=== PATIENT | male | born 1970 | race Hispanic/Latino ===

== ENCOUNTER 2022-06-03 11:44 | Emergency (ER) | payer OTHER ==
[~2022-06-03] VITALS: Ht 177.8 cm; Wt 108.9 kg
[2022-06-03 12:02] LABS: BASOPHILS % (AUTO) 1.9 % (0.0-5.0); EOSINOPHILS % (AUTO) 4.8 % (0.0-8.0); HEMATOCRIT 38.2 % (42-54); LYMPHOCYTES % (AUTO) 26.3 % (21.0-51.0); MEAN CORPUSCULAR HEMOGLOBIN 30.9 pg (27.0-33.0); MEAN CORPUSCULAR HGB CONC 33.8 g/dL (32.0-36.0); MEAN CORPUSCULAR VOLUME 91.4 fL (79-99); MONOCYTES % (AUTO) 22.5 % (3.0-13.0); PLATELET COUNT (AUTO) 101 K/uL (130-400); RED BLOOD CELL COUNT(AUTO) 4.18 MIL/uL (4.50-6.20); RED CELL DISTRIBUTION WIDTH 15.9 % (11.0-15.5); WHITE BLOOD COUNT (AUTO) 3.7 K/uL (4.8-10.8)
[2022-06-03 12:19] LABS: ALBUMIN 2.9 g/dL (3.5-5.0); CREATININE 0.8 mg/dL (0.5-1.5); POTASSIUM 3.8 mmol/L (3.5-5.1)
[2022-06-03 13:10] LABS: APPEARANCE,URINE CLEAR (CLEAR); BILIRUBIN,URINE NEGATIVE (NEGATIVE); COLOR,URINE YELLOW (YELLOW); GLUCOSE, URINE (UA) NEGATIVE (NEGATIVE); KETONES,URINE NEGATIVE (NEGATIVE); LEUKOCYTE ESTERASE ,URINE NEGATIVE Leu/uL (NEGATIVE); NITRATE,URINE NEGATIVE (NEGATIVE); OCCULT BLOOD,URINE NEGATIVE (NEGATIVE); PROTEIN,URINE NEGATIVE (NEGATIVE); UROBILINOGEN,URINE 6 mg/dL (0.2-1.0)
[2022-06-03 13:15] LABS: MUCUS,URINE RARE LPF (None Seen); WBC,URINE 0-1 /HPF (0-1)
[2022-06-03] MEDS ORDERED: GABA-533 PO (15:57)
[2022-06-03 16:07] VITALS: BP 132/71
== END 2022-06-03 16:09 | disposition home or self-care (01) ==
LOC: EDH 11:44
DX: R20.2 Paresthesia of skin (principal); Z79.899 Other long term (current) drug therapy
CPT/HCPCS: 36415; 70450; 80053; 81001; 84484; 85025; 93005

== ENCOUNTER 2025-06-02 11:23 | Emergency (ER) | payer SELFPAY ==
[~2025-06-02] VITALS: Ht 170.2 cm; Wt 73.9 kg
[~2025-06-02 11:23] MED LIST: CYCL10TA16 PO; GABA-534 PO
--- NOTE | 2025-06-02 11:27 | ERN ---
ED Note History of Present Illness Stated Complaint: OTHER Chief Complaint: Other Problems Time Seen by MD: 11:25 Dictation: This is a 54-year-old male who presented to the emergency room with complaints of increasing abdominal distention shortness of breath and requesting paracentes is. Patient stated that March 15 he was admitted to [facility] when he presented with similar symptoms and an extensive workup was done including liver biopsy was told that he had hepatocellular carcinoma. He has been undergoing paracentesis trend in the last procedure was 11 days ago. When asked about any other treatment options patient seemed to be extremely poor historian. He was told that he had cirrhosis of the liver. He denied any hepatitis. He stated that he drank quite heavily when he was younger and he quit drinking the day he was admitted to the hospital.he has lost weight and his appetite has been poor Temperature 97.9 pulse 74 respirations 18 blood pressure 110/64 with a pulse oximetry of 97% on room air Alcoholic cirrhosis of the liver, hypertension, hypercholesterolemia, hepatocellular carcinoma= details are unclear Allergies: Coded Allergies: No Known Drug Allergies (Unverified Allergy, Unknown, 06/03/22) Home Meds Active Scripts Cyclobenzaprine HCl (Flexeril) 10 Mg Tab, 10 MG PO TID for muscle sstiffness, #14 TAB 0 Refills Prov:[employer] 09/05/24 Gabapentin (Gabapentin) 400 Mg Capsule, 400 MG PO TID for 10 Days, #30 CAP Prov:SUKHDEV NAIR V [employer]ANNING DIRECTOR 06/03/22 Past Medical History Past Medical History: Cancer (HEPATOCELLULAR CARCINOMA), Coagulopathy, High Cholesterol, Hypertension Additional Past Medical Hx: NECK PAIN ASCITES STATUS POST PARACENTESIS Surgical History: Other Surgical History Other: NECK SURGERY Family History: Negative Social History: Negative RN Note Reviewed/Agreed w/PFSH: Yes Review of System Dictation Constitutional: Negative for fever,chills, and weight loss Eyes: Negative for injury, pain,redness, and discharge ENT: Negative for injury,pain or swelling Cardiovascular: Negative for chest pain, palpitations, and edema Respiratory: Negative for shortness of breath, cough, and wheezing, positive for shortness of breath related to abdominal distention Abdomen/GI: Negative for abdominal pain, nausea, vomiting, diarrhea, and constipation positive for increasing abdominal girth and distention Back: Negative for injury and pain : Negative for injury, bleeding and discharge MS/Extremity: Negative for injury and deformity Skin: Negative for rash, and discoloration Neuro: Negative for headache, weakness, numbness, tingling, and seizure Psych: Negative for suicide ideation, homicidal ideation, and hallucinations Initial Vital Sign VS Vital Signs Date Time Temp Pulse Resp B/P (MAP) Pulse Ox O2 Delivery O2 Flow Rate FiO2 06/02/25 11:32 97.9 74 18 110/64 97 Room Air 06/02/25 11:42 0 21 Physical Exam Dictation General: awake, alert, NAD emaciated ill-appearing Head/Face: Normocephalic, atraumatic Eyes: PERRL, EOMI, vision at baseline ENT: oral cavity clear, TMs clear, no signs of infection, poor dentition Neck: Trachea midline, supple, no nuchal rigidity Cardiovascular: RRR, normal S1/S2, No MRGs, no JVD Respiratory: CTAB, no respiratory distress, No rales or wheezes Abdomen: Very-distended, normal bowel sounds, no guarding or rebound. Tense ascites Skin: Warm, dry, normal turgor, no rash MS/Extremity: Pulses equal, no cyanosis, neurovascular intact, FROM Neuro: COAx4, GCS 15, strength 5/5, CN 2-12 intact, normal cerebellar exam, normal gait, Psych: Normal behavior, mood, and affect normal Extremities-1+ edema without any palpable cords, Homans sign is negative Results (Laboratory/Radiology) Laboratory/Radiology Laboratory Tests Test 06/02/25 11:39 White Blood Count 7.5 K/uL (4.8-10.8) Red Blood Count 2.93 MIL/uL (4.50-6.20) L Hemoglobin 9.2 g/dL (14.0-18.0) L Hematocrit 26.3 % (42-54) L Mean Corpuscular Volume 89.8 fL (79-99) Mean Corpuscular Hemoglobin 31.4 pg (27.0-33.0) Mean Corpuscular Hemoglobin Concent 35.0 g/dL (32.0-36.0) Red Cell Distribution Width 16.3 % (11.0-15.5) H Platelet Count 270 K/uL (130-400) Mean Platelet Volume 9.5 fL (7.5-10.5) Immature Granulocyte % (Auto) 1.1 % (0-1) H Neutrophils (%) (Auto) 71.5 % (40.0-77.0) Lymphocytes (%) (Auto) 16.9 % (21.0-51.0) L Monocytes (%) (Auto) 8.5 % (3.0-13.0) Eosinophils (%) (Auto) 1.5 % (0.0-8.0) Basophils (%) (Auto) 0.5 % (0.0-5.0) Neutrophils # (Auto) 5.4 K/uL (1.8-7.7) Lymphocytes # (Auto) 1.3 K/uL (1.0-4.8) Monocytes # (Auto) 0.6 K/uL (0.1-1.0) Eosinophils # (Auto) 0.11 K/uL (0.00-0.70) Basophils # (Auto) 0.04 K/uL (0.00-0.20) Absolute Immature Granulocyte (auto 0.08 K/uL (0-1) Nucleated Red Blood Cells 0.0 % (0.0-0.19) Prothrombin Time 14.2 SEC (9.6-11.6) H Prothromb Time International Ratio 1.38 (0.85-1.15) H Activated Partial Thromboplast Time 29.6 SEC (26.3-35.5) Sodium Level 128 mmol/L (136-145) L Potassium Level 3.8 mmol/L (3.5-5.1) Chloride Level 97 mmol/L (101-111) L Carbon Dioxide Level 23 mmol/L (21-32) Blood Urea Nitrogen 32 mg/dL (7-18) H Creatinine 1.6 mg/dL (0.5-1.3) H Glomerular Filtration Rate Calc 52 mL/min (>90) Random Glucose 104 mg/dL (70-105) Total Calcium 7.8 mg/dL (8.5-10.1) L Labs Reviewed?: Yes ED Course ED Course Orders Procedure Category Date Status Time Cbc With Differential LAB 06/02/25 Complete 11:45 Basic Metabolic Panel LAB 06/02/25 Complete 11:45 Pt And Ptt LAB 06/02/25 Complete 11:45 Us Abdominal US 06/02/25 Resulted Paracentesis Ir 11:45 Albumin Human 25% PHA 06/02/25 Complete (Albutein) 11:49 Lidocaine Hcl 1% 20ml PHA 06/02/25 Complete Vial (Lidocaine Hc 11:53 Current Medications Medications (Trade) Dose Ordered Sig/Val Route PRN Reason Start Time Stop Time Status Last Admin Dose Admin Albumin Human 200 ml @ As Directed STK-MED ONCE IV 06/02/25 11:49 06/02/25 11:49 DC 06/02/25 12:18 Lidocaine HCl (Lidocaine HCl 1% 20ml Vial) 20 ml STK-MED ONCE .ROUTE 06/02/25 11:53 06/02/25 11:53 DC Vital Signs Date Time Temp Pulse Resp B/P (MAP) Pulse Ox O2 Delivery O2 Flow Rate FiO2 06/02/25 14:13 97.9 69 18 99/52 97 Room Air* 0 06/02/25 13:57 97.9 69 18 96/55 97 Room Air* 0 06/02/25 13:40 97.9 72 18 93/46 97 Room Air* 0 06/02/25 11:42 97.9 74 18 110/64 97 Room Air* 0 21 06/02/25 11:32 97.9 74 18 110/64 97 Room Air Medical Decision Making MDM Differential diagnosis-recurrent malignant ascites, secondary bacterial peritonitis, metastatic lesions , bleeding into the peritoneum This is a 54-year-old male who presented to the emergency room with complaints of increasing abdominal distention shortness of breath and requesting parace ntesis. Patient stated that March 15 he was admitted to [facility] when he presented with similar symptoms and an extensive workup was done including liver biopsy was told that he had hepatocellular carcinoma. He has been undergoing paracentesis trend in the last procedure was 11 days ago. When asked about any other treatment options patient seemed to be extremely poor historian. He was told that he had cirrhosis of the liver. He denied any hepatitis. He stated that he drank quite heavily when he was younger and he quit drinking the day he was admitted to the hospital.he has lost weight and his appetite has been poor Temperature 97.9 pulse 74 respirations 18 blood pressure 110/64 with a pulse oximetry of 97% on room air Alcoholic cirrhosis of the liver, hypertension, hypercholesterolemia, hepatocellular carcinoma= details are unclear 12:20 p.m. labs reviewed CBC showed a white count of 7.5 hemoglobin 9.2 platelets 270. BNP 7 shows a sodium of 128 chloride 97 BUN and creatinine are 32 and 1.6. INR is 1.38 Requested IR guided paracentesis for therapeutic relief. 1:50 p.m. approximately 12 L of ascitic fluid was drained. Patient feels significantly improved Patient does not want to wait until albumin infusion stating he never received any before. Discharge him to follow up with his primary care physician and oncologist Rationale: Tests considered and ordered secondary to shared decision making include: Labs and ultrasound Previous outside records reviewed: Old ER visits. Risk of complication and/or morbidity or mortality of patient management: None Medications-Per medication reconciliation Need for hospitalization: Patient does not meet criteria for hospitalization. Need for emergency major/minor surgery: No There are no social concerns with this patient. Prescription drug management Prescriptions will include symptomatic care Patient's prior external medical records from other ER visits were reviewed by me as indicated. Prior testing and results from previous visits were reviewed. Prior tests were taken into account with medical decision making and resource utilization, independent historian/historians were used to obtain complete medical history. I independently interpreted the test that were performed, results were reviewed by me and considered findings on radiology if ordered. Medical management and examination interpretation discussions were had by me with other qualified healthcare professionals as indicated for the patient's care. Problem List Problem List: (1) Malignant ascites (2) Hepatocellular carcinoma (3) Alcoholic cirrhosis of liver DX & DISP Disposition: Discharge Departure Impression: Primary Impression: Malignant ascites Additional Impressions: Hepatocellular carcinoma, Alcoholic cirrhosis of liver, Status post abdominal paracentesis Condition: Stable Additional Instructions: Patient and the caregiver have been informed of all the diagnostic tests and the imaging conducted during the today's visit to the emergency room and has verbalized understanding of the results I have personally reviewed and interpreted all diagnostic exams performed here in the ER today as well as the vital signs documented by the nursing staff. The patient is now being discharged to home and should follow up with the primary care physician or the specialist as directed by the ER staff. 1 schedule a follow-up appointment; call your primary care physician's office on the next business day to set up a follow-up appointment. 2. Monitor symptoms; if your symptoms worsen return to the emergency room immediately. 3. Return to school/work; you may return to work or school in 2 days or as directed by your primary care physician. 4. Manage pain and fever; take [id number] Tylenol or Advil for pain or fever if there are no contraindications follow the recommended dosage instructions. 5. Stay well hydrated; drink plenty of oral fluids to stay hydrated. 6. Take prescribed medications; take any medications prescribed in the emergency room as directed bring them with you to your primary care physician visit for possible adjustments. 7. Complete medication course; finish the entire course of medication as prescribed even if you start feeling better. Do not have any leftover medication unless instructed otherwise. 8. Follow up on culture results; if a urine culture and wound culture was ordere d in the emergency room please follow-up with your primary care physician within 2-3 days to review the culture and sensitivity report for appropriate antibiotic therapy adjustments. 9. Resume home medications; you may resume taking your home medications unless instructed otherwise. 10. Reassessment instructions; you will need to be reassessed for removal of sutures/goldie in 7-10 days from today's visit here in the emergency department. If any were placed during her Emergency visit today you can return here to the emergency department to have them removed or go to your nearest urgent care center or your primary care physician. Please keep the wound as clean and dry as possible and do not apply any ointments keep the wound closed if your outdoors. These instructions should help you manage your condition effectively and ensure a smooth transition from the emergency room to follow up care with your primary care physician Referrals: SELF,REFERRAL (PCP) ETTA TIWARI MD Jun 02, 2025 11:27
[2025-06-02] MEDS ORDERED: LIDOCAINE HCL 1% 20 ML VIAL ONE (11:53)
[2025-06-02 12:01] LABS: IMMATURE GRANULOCYTE ABSOLUTE 0.08 K/uL (0-1); NUCLEATED RED BLOOD CELLS 0.0 % (0.0-0.19); PLATELET COUNT (AUTO) 270 K/uL (130-400); RED BLOOD CELL COUNT(AUTO) 2.93 MIL/uL (4.50-6.20); RED CELL DISTRIBUTION WIDTH 16.3 % (11.0-15.5); WHITE BLOOD COUNT (AUTO) 7.5 K/uL (4.8-10.8)
[2025-06-02 12:12] LABS: INR 1.38 (0.85-1.15)
[2025-06-02 12:17] LABS: CREATININE 1.6 mg/dL (0.5-1.3); GLOMERULAR FILTR. RATE CALC 52.0 mL/min (>90); GLUCOSE,RANDOM 104.0 mg/dL (70-105); SODIUM SERUM 128.0 mmol/L (136-145); UREA NITROGEN, BLOOD 32.0 mg/dL (7-18)
[2025-06-02] MEDS: ALBUMIN HUMAN 25% 200 ML IV ONE (12:18)
--- NOTE | 2025-06-02 13:15 | NUR ---
U/S GD PARACENTESIS PROCEDURE PERFORMED BY DR Nevaeh MORENO. PUNCTURE SITE RLQ AND PATIENT TOLERATED PROCEDURE WELL. TOTAL REMOVED 12.8 LITERS OF CLOUDY YELLOW FLUID. END OF PROCEDURE AT 1300. CATHETER REMOVED AND DRESSING APPLIED. NO BLEEDING NOTED. REPORT GIVEN TO Keith HAND LVN AND PATIENT TRANSPORTED TO ED [facility] C VIA STRETCHER AT 1315. AAO X3 WITH NO C/O PAIN. ALBUMIN 25% 50 GRAMS IV GIVEN DURING PROCEDURE AND FINISHED AT 1310.
--- NOTE | 2025-06-02 13:30 | NUR ---
PT RETURNED FROM IR AOX4 DENIES PAIN DRESSING DRY INTACT TO RIGHT QUADRANT 12L OF FLUID REMOVED FROM PARACENTESIS. VITALS OBTAINED
--- NOTE | 2025-06-02 14:11 | HMCIMG ---
US ABDOMINAL PARACENTESIS IR REASON: ASCITES TECHNIQUE: Paracentesis was performed with ultrasound guidance. The puncture site was selected in the Right lower quadrant and overlying skin prepped and draped in a sterile fashion. 1% Xylocaine infiltration was performed. Catheter was placed in the fluid using trocar technique. 12.8 L were removed. Fluid sample was submitted for laboratory evaluation. The patient showed no evidence of complication during the procedure. Patient tolerated procedure well. IMPRESSION: 1. Ultrasound-guided paracentesis.
[2025-06-02 14:13] VITALS: BP 99/52; PULSE 69; RESP 18; TEMP 97.9; O2SAT 97
== END 2025-06-02 14:24 | disposition home or self-care (01) ==
LOC: EDH 11:23
DX: C22.0 Liver cell carcinoma (principal); R18.0 Malignant ascites; I10 Essential (primary) hypertension; E78.00 Pure hypercholesterolemia, unspecified; Z79.899 Other long term (current) drug therapy; Z85.05 Personal history of malignant neoplasm of liver
CPT/HCPCS: 49083; 99285; 96365; 80048; 85025; 85610; 85730; 36415; P9046; J2003; C1729

== ENCOUNTER 2025-06-05 23:23 | Emergency (ER) | payer SELFPAY ==
[~2025-06-05] VITALS: Ht 170.2 cm; Wt 73.9 kg
--- NOTE | 2025-06-05 23:45 | ERN ---
ED Note History of Present Illness Stated Complaint: " LEAKING" FROM PARACENTESIS SITE, SOB Chief Complaint: Other Problems Time Seen by MD: 23:36 Dictation: This is a 54-year-old male who presented to the emergency room on 06/02 2025 with complaints of increasing abdominal distention shortness of breath and requesting paracentesis. Patient stated that March 15 he was admitted to [facility] when he presented with similar symptoms and an extensive workup was done including liver biopsy was told that he had hepato cellular carcinoma. He has been undergoing paracentesis trend in the last procedure was 11 days ago. When asked about any other treatment options patient seemed to be extremely poor historian. He was told that he had cirrhosis of the liver. He denied any hepatitis. He stated that he drank quite heavily when he was younger and he quit drinking the day he was admitted to the hospital.he has lost weight and his appetite has been poor . Two days ago he had paracentesis and he returned to the ER stating that he has been leaking from the site of paracentesis basically wetting his clothes and dressing. Temperature 98.7 pulse 78 respirations 20 blood pressure 100/42 with a pulse oximetry of 100% on room air Alcoholic cirrhosis of the liver, hypertension, hypercholesterolemia, hepatocellular carcinoma= details are unclear Allergies: Coded Allergies: No Known Drug Allergies (Unverified Allergy, Unknown, 06/03/22) Home Meds Active Scripts Cyclobenzaprine HCl (Flexeril) 10 Mg Tab, 10 MG PO TID for muscle sstiffness, #14 TAB 0 Refills Prov:EASTON VALLE CHIP CRUSHER OPERATOR 09/05/24 Gabapentin (Gabapentin) 400 Mg Capsule, 400 MG PO TID for 10 Days, #30 CAP Prov:SUKHDEV NAIR V CHIP CRUSHER OPERATOR 06/03/22 Past Medical History Past Medical History: Cancer, Coagulopathy, High Cholesterol, Hypertension Additional Past Medical Hx: NECK PAIN, MALIGNANT ASCITES, CARCINOMA HEPATOCELLULAR,ALCOHLIC CIRROSIS Surgical History: Other Surgical History Other: BACK, RIGHT ANKLE Family History: Negative Social History: Negative RN Note Reviewed/Agreed w/PFSH: Yes Review of System Dictation Constitutional: Negative for fever,chills, and weight loss Eyes: Negative for injury, pain,redness, and discharge ENT: Negative for injury,pain or swelling Cardiovascular: Negative for chest pain, palpitations, and edema Respiratory: Negative for shortness of breath, cough, and wheezing, Abdomen/GI: Negative for abdominal pain, nausea, vomiting, diarrhea, and constipation Back: Negative for injury and pain : Negative for injury, bleeding and discharge MS/Extremity: Negative for injury and deformity Skin: Negative for rash, and discoloration Neuro: Negative for headache, weakness, numbness, tingling, and seizure Psych: Negative for suicide ideation, homicidal ideation, and hallucinations Initial Vital Sign VS Vital Signs Date Time Temp Pulse Resp B/P (MAP) Pulse Ox O2 Delivery O2 Flow Rate FiO2 06/05/25 23:25 98.8 78 20 100/42 100 Room Air 06/05/25 23:29 0 21 Physical Exam Dictation General: awake, alert, NAD emaciated chronically ill-appearing male, jaundiced Head/Face: Normocephalic, atraumatic Eyes: PERRL, EOMI, vision at baseline ENT: oral cavity clear, TMs clear, no signs of infection Neck: Trachea midline, supple, no nuchal rigidity Cardiovascular: RRR, normal S1/S2, No MRGs, no JVD Respiratory: CTAB, no respiratory distress, No rales or wheezes Abdomen: Soft, non-tender,distended, normal bowel sounds, no guarding or rebound. Ascites positive. Right lateral quadrant small injection site oozing ascites fluid Skin: Warm, dry, normal turgor, no rash MS/Extremity: Pulses equal, no cyanosis, neurovascular intact, FROM Neuro: COAx4, GCS 15, strength 5/5, CN 2-12 intact, normal cerebellar exam, normal gait, Psych: Normal behavior, mood, and affect normal Extremities-trace edema without any palpable cords, Homans sign is negative Results (Laboratory/Radiology) Laboratory/Radiology Laboratory Tests Test 06/06/25 00:08 06/06/25 00:21 White Blood Count 6.8 K/uL (4.8-10.8) Red Blood Count 2.95 MIL/uL (4.50-6.20) L Hemoglobin 9.1 g/dL (14.0-18.0) L Hematocrit 26.6 % (42-54) L Mean Corpuscular Volume 90.2 fL (79-99) Mean Corpuscular Hemoglobin 30.8 pg (27.0-33.0) Mean Corpuscular Hemoglobin Concent 34.2 g/dL (32.0-36.0) Red Cell Distribution Width 16.4 % (11.0-15.5) H Platelet Count 226 K/uL (130-400) Mean Platelet Volume 10.1 fL (7.5-10.5) Immature Granulocyte % (Auto) 1.5 % (0-1) H Neutrophils (%) (Auto) 68.2 % (40.0-77.0) Lymphocytes (%) (Auto) 20.4 % (21.0-51.0) L Monocytes (%) (Auto) 7.4 % (3.0-13.0) Eosinophils (%) (Auto) 1.9 % (0.0-8.0) Basophils (%) (Auto) 0.6 % (0.0-5.0) Neutrophils # (Auto) 4.6 K/uL (1.8-7.7) Lymphocytes # (Auto) 1.4 K/uL (1.0-4.8) Monocytes # (Auto) 0.5 K/uL (0.1-1.0) Eosinophils # (Auto) 0.13 K/uL (0.00-0.70) Basophils # (Auto) 0.04 K/uL (0.00-0.20) Absolute Immature Granulocyte (auto 0.10 K/uL (0-1) Nucleated Red Blood Cells 0.0 % (0.0-0.19) Sodium Level 125 mmol/L (136-145) L Potassium Level 3.5 mmol/L (3.5-5.1) Chloride Level 93 mmol/L (101-111) L Carbon Dioxide Level 20 mmol/L (21-32) L Blood Urea Nitrogen 26 mg/dL (7-18) H Creatinine 1.4 mg/dL (0.5-1.3) H Glomerular Filtration Rate Calc 60 mL/min (>90) Random Glucose 93 mg/dL (70-105) Total Calcium 8.0 mg/dL (8.5-10.1) L Total Bilirubin 9.2 mg/dL (0.2-1.0) H Aspartate Amino Transf (AST/SGOT) 275 U/L (10-37) H Alanine Aminotransferase (ALT/SGPT) 125 U/L (12-78) H Alkaline Phosphatase 141 U/L (50-136) H Total Protein 6.4 g/dL (6.0-8.3) Albumin 1.3 g/dL (3.5-5.0) L Ammonia 15 umol/L (11-32) Labs Reviewed?: Yes X-RAY Comment: REASON: shortness of breath ORDERING PHYSICIAN: ETTA TIWARI MD PROCEDURE: CXR1VW - CHEST 1VW EXAM: CR Chest, 1 View. CLINICAL HISTORY: Shortness of breath COMPARISON: None provided. FINDINGS: LUNGS: The lungs show no infiltrate or other acute finding. PLEURAL SPACES: No pleural effusion or pneumothorax. MEDIASTINUM: The cardiomediastinal silhouette is within normal limits. BONES: No acute osseous abnormality. IMPRESSION: No acute cardiopulmonary pathology is evident. /[place] DICTATED BY: JOSÉ KEITH Jr., MD DATE: 06/06/25137 ELECTRONICALLY SIGNED BY: JOSÉ KEITH Jr., MD DATE: 06/06/25137 ED Course ED Course Orders Procedure Category Date Status Time Chest 1vw RAD 06/05/25 Resulted 23:57 Cbc With Differential LAB 06/05/25 Complete 23:57 Comprehensive LAB 06/05/25 Complete Metabolic Panel 23:57 Albumin Human 25% PHA 06/05/25 Complete (Alb[place]in) 00:00 Albumin Human 25% PHA 06/06/25 Complete (Alb[place]in) 00:06 Ammonia LAB 06/06/25 Complete 00:17 Spironolactone 25mg PHA 06/06/25 Complete (Aldactone 25mg) 01:00 Current Medications Medications (Trade) Dose Ordered Sig/Val Route PRN Reason Start Time Stop Time Status Last Admin Dose Admin Albumin Human 100 ml @ As Directed STK-MED ONCE IV 06/06/25 00:06 06/06/25 00:06 DC Albumin Human 100 ml @ 0 mls/hr ONCE ONCE IV 06/05/25 00:00 06/05/25 23:59 DC 06/06/25 00:11 Spironolactone (Aldactone 25mg) 50 mg ONCE ONCE PO 06/06/25 01:00 06/06/25 01:03 DC Vital Signs Date Time Temp Pulse Resp B/P (MAP) Pulse Ox O2 Delivery O2 Flow Rate FiO2 06/05/25 23:29 77 19 112/55 98 Room Air* 0 21 06/05/25 23:25 98.8 78 20 100/42 100 Room Air Medical Decision Making MDM Differential diagnosis:recurrent malignant ascites, secondary bacterial peritonitis, metastatic lesions , bleeding into the peritoneum This is a 54-year-old male who presented to the emergency room on 06/02 2025 with complaints of increasing abdominal distention shortness of breath and requesting paracentesis. Patient stated that March 15 he was admitted to [facility] when he presented with similar symptoms and an extensive workup was done including liver biopsy was told that he had hepatocellular carcinoma. He has been undergoing paracentesis trend in the last procedure was 11 days ago. When asked about any other treatment options patient seemed to be extremely poor historian. He was told that he had cirrhosis of the liver. He denied any hepatitis. He stated that he drank quite heavily when he was younger and he quit drinking the day he was admitted to the hospital.he has lost weight and his appetite has been poor . Two days ago he had paracentesis and he returned to the ER stating that he has been leaking from the site of paracentesis basically wetting his clothes and dressing. Temperature 98.7 pulse 78 respirations 20 blood pressure 100/42 with a pulse oximetry of 100% on room air Alcoholic cirrhosis of the liver, hypertension, hypercholesterolemia, hepatocellular carcinoma= details are unclear The right lateral aspect of the incision site of the recent paracentesis is leaking yellow free-flowing ascitic fluid. Reinforcement dressing was done after albumin infusion. 1:20 a.m. Labs obtained CBC shows a white count of 6.8 hemoglobin 9.1 platelets 226. BNP 7 is significant for a sodium of 125 chloride 93 bicarb 20 BUN and creatinine are 26 and 1.4 with a glucose of 93 LFTs are very abnormal with a bilirubin of 9.2 albumin of 1.3. Ammonia is 15 Updated the patient and the family member on all the labs stepwise approach to the leakage of ascitic fluid and also gave him an abdominal binder to hold the reinforce dressing. If it still does not improve, patient may need a glue. Unfortunately due to lack of funding patient is unable to see the oncologist per family members to discuss any cancer directed therapy. Patient indicated that he is scheduled for a paracentesis Thursday and he would rather go home and come back for his paracentesis on Thursday Rationale: Tests considered and ordered secondary to shared decision making include: Labs Previous outside records reviewed: Old ER visits. Risk of complication and/or morbidity or mortality of patient management: None Medications-Per medication reconciliation Need for hospitalization: Patient does not meet criteria for hospitalization. Need for emergency major/minor surgery: No There are no social concerns with this patient. Prescription drug management Prescriptions will include symptomatic care Patient's prior external medical records from other ER visits were reviewed by me as indicated. Prior testing and results from previous visits were reviewed. Prior tests were taken into account with medical decision making and resource utilization, independent historian/historians were used to obtain complete medical history. I independently interpreted the test that were performed, results were reviewed by me and considered findings on radiology if ordered. Medical management and examination interpretation discussions were had by me with other qualified healthcare professionals as indicated for the patient's care. Problem List Problem List: (1) Malignant ascites (2) Hepatocellular carcinoma (3) Alcoholic cirrhosis of liver (4) Status post abdominal paracentesis DX & DISP Disposition: Discharge Departure Impression: Primary Impression: Malignant ascites Additional Impressions: Status post abdominal paracentesis, Alcoholic cirrhosis of liver, Hepatocellular carcinoma Condition: Stable Additional Instructions: Patient and the caregiver have been informed of all the diagnostic tests and the imaging conducted during the today's visit to the emergency room and has verbalized understanding of the results I have personally reviewed and interpreted all diagnostic exams performed here in the ER today as well as the vital signs documented by the nursing staff. The patient is now being discharged to home and should follow up with the primary care physician or the specialist as directed by the ER staff. Follow-up with primary care provider in 1 to 2 days. Take medications as directed here in the emergency room. Okay to continue home medications unless otherwise discussed during your visit in the emergency room today. Return to your nearest emergency room if symptoms worsen or if there is no improvement. Call 911 if you need immediate assistance. Take Tylenol or Motrin over -the-counter as needed and if no contraindications are present. Increase oral hydration. A wound culture or urine culture was ordered here in the emergency room department please follow-up with primary care provider and advise them to get repeat ports from our facility. If you had any Bob wrap/splints that were applied here, please do not remove them until you see your primary care or specialty. Patient to follow up with his liver specialist. Patient is scheduled for paracentesis on Thursday which is 2 days from now and patient will go home reinforce dressing Referrals: KENDY DEL CASTILLO MD (PCP) ETTA TIWARI MD Jun 05, 2025 23:45
--- NOTE | 2025-06-05 23:48 | NUR ---
PT CARE ASSUMED AT THIS TIME
[2025-06-06] MEDS: ALBUMIN HUMAN 25% 100 ML IV ONE ×2 (00:11)
[2025-06-06 00:29] LABS: IMMATURE GRANULOCYTE ABSOLUTE 0.10 K/uL (0-1); NUCLEATED RED BLOOD CELLS 0.0 % (0.0-0.19); PLATELET COUNT (AUTO) 226 K/uL (130-400); RED BLOOD CELL COUNT(AUTO) 2.95 MIL/uL (4.50-6.20); RED CELL DISTRIBUTION WIDTH 16.4 % (11.0-15.5); WHITE BLOOD COUNT (AUTO) 6.8 K/uL (4.8-10.8)
[2025-06-06 00:39] LABS: CREATININE 1.4 mg/dL (0.5-1.3); GLOMERULAR FILTR. RATE CALC 60.0 mL/min (>90); GLUCOSE,RANDOM 93.0 mg/dL (70-105); SODIUM SERUM 125.0 mmol/L (136-145); UREA NITROGEN, BLOOD 26.0 mg/dL (7-18)
--- NOTE | 2025-06-06 00:39 | HMCIMG ---
EXAM: CR Chest, 1 View. CLINICAL HISTORY: Shortness of breath COMPARISON: None provided. FINDINGS: LUNGS: The lungs show no infiltrate or other acute finding. PLEURAL SPACES: No pleural effusion or pneumothorax. MEDIASTINUM: The cardiomediastinal silhouette is within normal limits. BONES: No acute osseous abnormality. IMPRESSION: No acute cardiopulmonary pathology is evident. /[place]
[2025-06-06 00:46] LABS: ASPARTATE AMINOTRANSFERASE 275.0 U/L (10-37); TOTAL PROTEIN, SERUM 6.4 g/dL (6.0-8.3)
[2025-06-06] MEDS: SPIRONOLACTONE 25 MG TAB PO ONE (01:33)
--- NOTE | 2025-06-06 01:39 | NUR ---
VERBALLY ORDERED BY ED MD TIWARI; ED RN CHANGED SOILED DRESSING TO LLQ. QUICK CLOT AND DRY GUAZED PLACED. PT TOLERATED PROCEDURE WELL. PT DENIES PAIN AND SOB AT THIS TIME. Addendum: 06/06/25 at 0204 by [email or web address] VERBALLY ORDERED BY TAJ TIWARI; ED RN CHANGED SOILED DRESSING TO RLQ. QUICK CLOT AND DRY GUAZED PLACED. PT TOLERATED PROCEDURE WELL. PT DENIES PAIN AND SOB AT THIS TIME.
[2025-06-06 01:44] VITALS: BP 109/56; PULSE 71; RESP 17; TEMP 98.8; O2SAT 97
== END 2025-06-06 01:52 | disposition home or self-care (01) ==
LOC: EDH 23:23
DX: C22.0 Liver cell carcinoma (principal); R18.0 Malignant ascites; I10 Essential (primary) hypertension; E78.00 Pure hypercholesterolemia, unspecified; Z85.05 Personal history of malignant neoplasm of liver; Z79.899 Other long term (current) drug therapy
CPT/HCPCS: 99284; 71045; 80053; 82140; 85025; 36415; 96365; 96366; P9046